=== PATIENT | female | born 1960 | race Caucasian/White ===

== ENCOUNTER → 2020-04-28 00:01 | Outpatient (BNVA) | payer BC, SELFPAY | PROVIDERS: Visit Provider Nurse Practitioner Family | DX: N39.0 Urinary tract infection, site not specified (principal) | CPT/HCPCS: 81003 ==

== ENCOUNTER 2021-06-26 05:42 | Inpatient (IN) | payer OTHER, SELFPAY ==
[2021-06-26] VITALS (10 sets, daily range): BP systolic 102–150; BP diastolic 42–74; PULSE 64–98; RESP 16–22; TEMP 36.4–36.9; O2SAT 90–99; BMI 24.1
--- NOTE | 2021-06-26 05:55 | PC.NURSE ---
patient arrival with c/o dizziness with room spinning and nausea. reports got up at midnight and was fine then at 0230 woke up and was dizzy. patient appears pale. noted with dry heaving and a BM after arrival to ER, soft but not diarrhea.
--- NOTE | 2021-06-26 06:01 | CTR_ITS ---
PROCEDURE INFORMATION: Exam: CT Head Without Contrast Exam date and time: 06/26/2021 6:01 AM Age: 60 years old Clinical indication: Patient HX: C/O dizziness with nausea. ; Additional info: Dizziness/dysarthria/ams TECHNIQUE: Imaging protocol: Computed tomography of the head without contrast. Radiation optimization: All CT scans at this facility use at least one of these dose optimization techniques: automated exposure control; mA and/or kV adjustment per patient size (includes targeted exams where dose is matched to clinical indication); or iterative reconstruction. COMPARISON: No relevant prior studies available. RADIATION DOSE METRICS: Total DLP (mGy-cm): 1022.19 FINDINGS: Brain: There are punctate hypoattenuation lesions seen within the thalami bilaterally compatible with tiny lacunar infarctions. Cerebral ventricles: No ventriculomegaly. Paranasal sinuses: Visualized sinuses are unremarkable. No fluid levels. Mastoid air cells: Visualized mastoid air cells are well aerated. Bones/joints: Unremarkable. No acute fracture. Soft tissues: Unremarkable. CT/CT head wo con* [id number] IMPRESSION: There are no acute intracranial findings.
--- NOTE | 2021-06-26 06:02 | ED_ITS ---
HPI - Dizziness General: Chief Complaint: Dizziness Stated Complaint: DIZZINESS Time Seen by Provider: 06/26/21 05:50 History of Present Illness: HPI Narrative: 60-year-old female presents emergency room complaining of dizziness. She states she woke up around 230 this morning was dizzy her states she seemed a little bit of difficulty speaking for a time as well that is completely resolved. She did not previously had issues like this. Last night before going to bed around 930 she took Benadryl as a sleep aid. She denies any chest or abdominal pain she denies any dysuria urgency or frequency. Shortly after she got up this morning she had a bowel movement.Denies any vomiting or diarrhea no recent fever sweats or chills. NIH score done initially. MD elicited complaint: dizziness and lightheadedness Onset (ago): hour(s) Timing: awoke with symptoms Severity: mild Description: lightheadedness History of similar symptoms: No Exacerbating factors: change in body position Relieving factors: nothing Associated symptoms: Reports malaise and weakness; Denies change in hearing, chest pain, chills, cough, diaphoresis, ear discharge, ear pressure, fevers/chills, headache(s), nausea, nasal congestion, palpitations, rash, short of breath, syncope, tinnitus or vomiting Associated neuro symptoms: Reports difficulty speaking; Deny confusion, dysphagia, diplopia, extremity weakness, facial numbness, facial weakness, gait changes, numbness in extremities or visual changes Review of Systems Const: Reports: malaise; Denies: chills or diaphoresis ENMT: Denies: ear discharge, change in hearing, tinnitus or nasal congestion Card: Denies: chest pain, palpitations or syncope Resp: Denies: dyspnea, productive cough or non-productive cough GI: Denies: nausea, vomiting or dysphagia : Denies: flank pain, difficulty voiding, dysuria, urinary frequency or urinary urgency Skin/Breast: Denies: rash or pruritus Neuro: Denies: headache(s), numbness in extremities or confusion PFSH ED PFSH: Medical History No pertinent past medical history Denies diabetes, asthma, hypertension, seizures, DVT/PE PCP: PIYUSH Peng Surgical History Status post hysterectomy Laparoscopic hysterectomy with bilateral salpingo-oophorectomy for abnormal uterine bleeding performed in 2000. Per patient pathology was benign Family History Brother Colon cancer Diagnosed at age 50 Father Heart disease Sister Hyperlipidemia Denies family history of Ovarian cancer Diabetes Breast cancer Hypertension Uterine cancer Thyroid condition Stroke Social History Smoking and tobacco status: never smoked Second hand smoke exposure: No Counseling given: No Desire information about substance/drug rehabilitation?: No Counseling given: No Physical Exam Const: COMMON NORMALS: no acute distress GENERAL APPEARANCE: cooperative and comfortable ORIENTATION/CONSCIOUSNESS: Yes awake, Yes oriented to person, Yes oriented to place and Yes oriented to time HENMT: COMMON NORMALS: normocephalic, atraumatic and hearing grossly normal bilaterally HEAD & SCALP: normocephalic and atraumatic Neck/C-Spine: COMMON NORMALS: no JVD Resp: COMMON NORMALS: normal respiratory effort, No retractions, No use of accessory muscles and clear to auscultation bilaterally AUSCULTATION: clear to auscultation bilaterally Cardio: COMMON NORMALS: no JVD, regular rate, regular rhythm and No murmurs present (Cardio) RATE: regular rate RHYTHM: regular rhythm GI: COMMON NORMALS: Soft to palpation and No hepatosplenomegaly present AUSCULTATION: Yes normoactive bowel sounds PALPATION: Yes Soft to palpation, No Tenderness to palpation present (GI), No Guarding due to palpation present (GI) and Yes No hepatosplenomegaly present Extremity: COMMON NORMALS: normal to inspection, capillary refill normal, no clubbing, cyanosis or edema, no calf tenderness and no pedal edema Neuro: SENSORIUM/ORIENTATION: Yes oriented to person, Yes oriented to place and Yes oriented to time Skin: COMMON NORMALS: no rashes or lesions noted GENERAL SKIN EXAM: no rashes or lesions noted Course Vital Signs: Vital signs: Vital Signs Temperature 97.6 F 06/26/21 05:45 Pulse Rate 66 06/26/21 07:36 Respiratory Rate 18 06/26/21 07:36 Blood Pressure 150/69 06/26/21 07:36 Pulse Oximetry 99 06/26/21 07:36 MDM - Dizziness MDM Narrative: Medical decision making narrative: Initial stroke score was 0. Is concerned about the symptoms to be from either side effects of the Benadryl or from a labyrinthitis however patient could not even stand. We tried to do orthostatic and she was unable to stand to have them evaluated. CTA of the head was done which shows evidence of a posterior stroke consistent with her symptoms. She been given meclizine in the interim that was not significantly helpful. When I went back to discuss the CT a results to the patient she had developed some limb ataxia of the right arm that she had not had previously. Discussed with Dr. Ospina will admit to the hospitalist service. Patient will require admission for monitoring due to the edema in the brain as well as work- up for her acute stroke. Lab Data: Labs: Lab Results 06/26/21 06/26/21 05:43 05:43 WBC 15.9 10^3/uL H 10 ^3/uL (4.0-10.0) RBC 4.36 10^6/uL 10^6 /uL (4.1-5.3) Hgb 13.4 g/dL g/dL (11.5-15.3) Hct 40.6 % % (37.0-47.0) MCV 93.1 fl fl (81-99) MCH 30.7 pg pg (28.0-34.0) MCHC 33.0 g/dL g/dL (30.0-36.0) RDW 13.0 % % (12.1-15.1) Plt Count 451 10^3/cmm H 10 ^3/cmm (130-400) MPV 9.8 fL fL (7.4-10.4) Neut % (Auto) 22.4 % % Lymph % (Auto) 67.0 % % Grundy % (Auto) 6.8 % % Eos % (Auto) 1.7 % % Baso % (Auto) 0.8 % % Neut # (Auto) 3.56 10^3/uL 10^3 /uL (1.8-7.7) Lymph # (Auto) 10.7 10^3/uL H 10 ^3/uL (0.8-4.8) Grundy # (Auto) 1.1 10^3/uL H 10^ 3/uL (0.2-0.9) Eos # (Auto) 0.3 10^3/uL 10^3/ uL (0.0-0.8) Baso # (Auto) 0.1 10^3/uL 10^3/ uL (0.0-0.1) Nucleated RBC % (a uto) 0 % % Nucleated RBCs # 0.0 /100WBC /100W BC Sodium 140 mmol/L mmol/L (136-145) Potassium 3.6 mmol/L mmol/L (3.5-5.1) Chloride 103 mmol/L mmol/L (98-107) Carbon Dioxide 20 mmol/L L mmol/ L (22-29) Anion Gap 20.6 H (5-19) BUN 17 mg/dL mg/dL (8-23) Creatinine 0.5 mg/dL mg/dL (0.5-0.9) GFR Calculation 125.4 mL/min mL/m in (90-130) Glucose 178 mg/dL H mg/dL (65-115) Calculated Osmolal ity 296 mOsm/kg H mOs m/kg (285-295) Calcium 9.9 mg/dL mg/dL (8.5-10.5) Total Bilirubin 0.3 mg/dL mg/dL (0.15-1.2) AST 16 U/L U/L (0-32) ALT 14 U/L U/L (0-33) Alkaline Phosphata se 66 IU/L IU/L (35-105) Creatine Kinase 87 U/L U/L (26-192) Total Protein 6.7 g/dL g/dL (6.6-8.7) Albumin 4.2 g/dL g/dL (3.5-5.2) Globulin 2.5 g/dL g/dL (1.3-4.6) Discharge Plan Discharge Patient Disposition: Admitted As Inpatient Clinical Impression: Posterior circulation stroke Condition: Stable Coding Level of Care Code ED Director Dietetics Department for Lauren Padilla Exam Comprehensive NIH stroke score NIHSS Level Of Consciousness - 1a: 0 Level Of Consciousness Questions - 1b: Both Correct Level Of Consciousness Commands - 1c: Both Correct Best Gaze - 2: Normal Visual Antonio - 3: No Visual Loss Facial Palsy - 4: Normal Motor Arm Right - 5: No Drift Motor Arm Left - 5: No Drift Motor Leg Right - 6: No Drift Motor Leg Left - 6: No Drift Limb Ataxia - 7: Absent Sensory - 8: Normal Best Language - 9: No Aphasia Dysarthia - 10: Normal Extinction And Inattention - 11: 0 Score Total Score: 0
[2021-06-26 06:11] LABS: Basophils # 0.1 10^3/uL (0.0-0.1); Basophils % 0.8 %; Eosinophils # 0.3 10^3/uL (0.0-0.8); Eosinophils % 1.7 %; Hematocrit 40.6 % (37.0-47.0); Hemoglobin 13.4 g/dL (11.5-15.3); Lymphocytes # 10.7 10^3/uL (0.8-4.8); Mean Corpuscular Hemoglobin 30.7 pg (28.0-34.0); Mean Corpuscular Volume 93.1 fl (81-99); Mean Platelet Volume 9.8 fL (7.4-10.4); Monocytes # 1.1 10^3/uL (0.2-0.9); Monocytes % 6.8 %; Neutrophils # 3.56 10^3/uL (1.8-7.7); Neutrophils % 22.4 %; Nucleated Red Blood Cells % 0 %; Platelet Count 451 10^3/cmm (130-400); Red Blood Count 4.36 10^6/uL (4.1-5.3); White Blood Count 15.9 10^3/uL (4.0-10.0)
[2021-06-26 06:29] LABS: Alanine Aminotransferase 14 U/L (0-33); Albumin Level 4.2 g/dL (3.5-5.2); Alkaline Phosphatase 66 IU/L (35-105); Anion Gap 20.6 (5-19); Aspartate Amino Transferase 16 U/L (0-32); Blood Urea Nitrogen 17 mg/dL (8-23); Calcium 9.9 mg/dL (8.5-10.5); Carbon Dioxide 20 mmol/L (22-29); Chloride 103 mmol/L (98-107); Creatine Phosphokinase 87 U/L (26-192); Globulin 2.5 g/dL (1.3-4.6); Glomerular Filtration Rate 125.4 mL/min (90-130); Glucose 178 mg/dL (65-115); Osmolality Calculated 296 mOsm/kg (285-295); Potassium 3.6 mmol/L (3.5-5.1); Sodium 140 mmol/L (136-145); Total Bilirubin 0.3 mg/dL (0.15-1.2); Total Protein 6.7 g/dL (6.6-8.7)
--- NOTE | 2021-06-26 06:42 | PC.NURSE ---
transported to CT
[2021-06-26] MEDS: meclizine 25 mg tablet 50 MG PO (07:30)
--- NOTE | 2021-06-26 08:51 | CT_ITS ---
WS: [id number] CT ANGIOGRAM CEREBRAL AND CAROTID ARTERIES HISTORY: dizziness/unsteady TECHNIQUE: CT angiogram is performed of the carotid and cerebral arteries. During arterial injection imaging is obtained from the skull vertex to the aortic arch in 1.25 mm imaging. Coronal and sagittal reformats are submitted. Additional multi planar reformats of the carotid and cerebral arteries are submitted, MIP imaging also reviewed. NASCET criteria utilized. [facility] at least one of these dose optimization techniques: automated exposure control; mA and/or kV adjust ment per patient size (includes targeted exams where dose is matched to clinical indication); or iter ative reconstruction. CONTRAST: Omnipaque 350; 95 mL IV. DLP: 1724.22 mGy.cm COMPARISON: Noncontrast head CT earlier the same day. Carotid Angiogram: Right carotid: Common carotid artery: Arises normally from the innominate artery. No significant plaque or stenosis. Internal carotid artery: Small amount of calcified plaque without stenosis at the origin of the ICA. External carotid artery: Patent. Left carotid: Common carotid artery: Arises normally from the aorta. No significant plaque or stenosis. Internal carotid artery: Small amount of calcified plaque at the origin of the ICA. No high-grade bee nosis. External carotid artery: Patent. Right vertebral artery: Unremarkable. Left vertebral artery: Unremarkable. Arises normally from the subclavian artery. Subclavian arteries: No stenosis or significant abnormality. Upper thorax: Normal. Thyroid gland: Normal. Osseous structures: Multiple normal cervical lordosis and cervical spondylosis. CEREBRAL ANGIOGRAM: Since the initial CT performed earlier the same day there has been development of an area of edema wi thin the superior RIGHT cerebellum noted on the postcontrast images consistent with an acute ischemic stroke. This is along the superior medial cerebellum. Intracranial vertebral arteries: Normal with no significant atherosclerosis. Basilar artery: No significant stenosis or occlusion. No aneurysm. Intracranial Internal carotid arteries: Mild calcified plaque through the cavernous sinuses. No high- grade stenosis. Middle cerebral arteries: There is an asymmetric appearance of the middle cerebral arteries. There is a significant paucity of vessels throughout the LEFT middle cerebral artery territory as compared to the RIGHT. Caliber of the arteries is small beginning in the M2 through M3 and November 4 segments. The underlying brain parenchyma does not appear edematous. Anterior cerebral arteries and ACOM: Normal. Posterior cerebral arteries and PCOM's: Normal. Dural venous sinuses are normally enhancing. Mixed filling in the RIGHT jugular vein is probably due to slow flow. Mastoid air cells: Normal. Paranasal sinuses: Small mucous retention cyst in the floor the RIGHT maxillary sinus. Calvarium: Normal. CT/CT angio headneck* [id number] IMPRESSION: 1. Interval development of a moderate-sized acute RIGHT superior medial cerebe llar infarct since the study earlier the same day. Recommend follow-up MRI with diffusion imaging. 2. No significant carotid artery stenosis. Minimal plaque at the origins of th e extracranial carotid arteries with stenosis much less than 50%. 3. Atherosclerosis intracranial carotid arteries. No occlusions or high-grade stenosis. 4. There is a moderate paucity of vessels within the LEFT MCA territory, great est from the M2, M3 and M4 distributions. No thrombus is identified. This may b e a normal variant for this patient. Additional etiologies to consider are cere bral artery spasm. Notified Luis Pedro DO at 06/26/2021 10:17 AM.
--- NOTE | 2021-06-26 09:13 | ECG_ITS ---
[facility] Test Date: 2021-06-26 Pat Name: Binh Minor Department: Room: Gender: Female Forensics Analyst: : 1960 Requested By: Luis Bryant Order Number: [id number] Jose MD: Vesta Holland M.D. Measurements Intervals [place] Rate: 82 P: 55 KS: 133 QRS: 35 QRSD: 84 T: 50 QT: 396 QTc: 464 Interpretive Statements SINUS RHYTHM POSSIBLE LEFT ATRIAL ENLARGEMENT [-0.1mV P-WAVE IN V1/V2] No previous ECG available for comparison Electronically Signed On 06-26-2021 17:56:07 HARD METALS ENGRAVER HAND by Vesta Holland M.D. [id number]
[2021-06-26] MEDS: iohexol 350 mg/mL 100 mL Btl IV (09:26)
--- NOTE | 2021-06-26 10:25 | USCV_ITS ---
Mily, Binh Age: 60 Gender: F : 1960 Exam Date: 06/26/2021 10:48 Ordering Phys: Titi Koenig MD Technologist: ANIYA Exam Location: [facility] [place] Indication: c/o ataxia, dizziness BP: / HR: 75 Rhythm: Sinus Technical Quality: Adequate MEASUREMENTS (Male / Female) Normal Values 2D ECHO LV Diastolic Diameter PLAX 4.4 cm 4.2 - 5.9 / 3.9 - 5.3 cm LV Systolic Diameter PLAX 2.6 cm IVS Diastolic Thickness 1.0 cm 0.6 - 1.0 / 0.6 - 0.9 cm IVS Systolic Thickness 1.2 cm LVPW Diastolic Thickness 0.8 cm 0.6 - 1.0 / 0.6 - 0.9 cm LVPW Systolic Thickness 1.0 cm LVOT Diameter 1.8 cm LV Ejection Fraction 2D Teich 71.5 % LV Ejection Fraction MOD 2C 57.7 % LV Ejection Fraction 2C AL 59.3 % LA Diameter 3.2 cm LA Width 3.4 cm LA Height 4.0 cm RA Width 3.4 cm RA Height 4.0 cm Aorta at Sinotubular Diameter 2.6 cm M-MODE Aortic Annulus Diameter 2.5 cm LA Ao Ratio MM 1.3 MV E Point Septal Separation 0.2 cm DOPPLER AV Peak Velocity 89.0 cm/s LVOT Peak Velocity 88.0 cm/s AV Area Cont Eq vti 2.7 cm squared AV Area Cont Eq pk 2.7 cm squared MV Peak Velocity 123.0 cm/s MV Area PHT 4.8 cm squared Mitral E to A Ratio 0.8 MV E' Velocity 54.0 cm/s Mitral E to MV E' Ratio 13.6 Mitral E to LV E' Lateral Ratio 12.6 Mitral E to LV E' Septal Ratio 15.0 TR Peak Velocity 214.0 cm/s TR Peak Gradient 18.3 mmHg TV Peak E Velocity 41.0 cm/s Right Atrial Pressure 5.0 mmHg Pulmonary Artery Systolic Pressu 23.3 mmHg PV Peak Velocity 85.0 cm/s RV Acceleration Time 0.1 s RV Ejection Time 0.4 s RV AcT/ET 0.3 FINDINGS Left Ventricle Normal left ventricular size, systolic function and wall thickness, with no regional wall motion abnormalities. Left ventricular ejection fraction is estimated at 65 %. Normal diastolic function. Right Ventricle Normal right ventricular size and systolic function. Right ventricular systolic pressure 24 mmHg. Right Atrium Normal right atrial size. Right atrial pressure estimated at 3 mmHg. Left Atrium Upper normal left atrial size. Mitral Valve Mild mitral annular calcification. No mitral valve stenosis. Mild mitral valve regurgitation. Aortic Valve Structurally normal trileaflet aortic valve. No aortic valve stenosis. No aortic valve regurgitation. Tricuspid Valve Structurally normal tricuspid valve. No tricuspid valve stenosis. Trace tricuspid valve regurgitation. Pulmonic Valve Structurally normal pulmonic valve. No pulmonary valve stenosis. No pulmonary valve regurgitation. Pericardium No pericardial effusion. Aorta Normal size aortic root and proximal ascending aorta. Normal size inferior vena cava with normal respiratory variation. CONCLUSIONS 1. Normal left ventricular size, systolic function and wall thickness, with no regional wall motion abnormalities. Left ventricular ejection fraction is estimated at 65 %. Normal diastolic function. 2. Pulmonary artery pressure estimated at 24 mmHg. 3. Mild mitral valve regurgitation. 4. No prior similar studies to compare. Milagros Castellanos MD (Electronically Signed) Final Date: 26 June 2021 16:19 S
--- NOTE | 2021-06-26 10:29 | ECG_ITS ---
[facility] Test Date: 2021-06-26 Pat Name: Binh Minor Department: Room: Gender: Female Equipment Scheduler: : 1960 Requested By: Luis Bryant Order Number: [id number] Jose MD: Vesta Holland M.D. Measurements Intervals [place] Rate: 65 P: 52 MT: 136 QRS: 23 QRSD: 91 T: 40 QT: 453 QTc: 472 Interpretive Statements SINUS RHYTHM WITH SINUS ARRHYTHMIA No previous ECG available for comparison Electronically Signed On 06-26-2021 17:56:03 TABLE MACHINE OPERATOR by Vesta Holland M.D. [id number]
--- NOTE | 2021-06-26 10:52 | PM.HP ---
Providers/Chief Complaint Chief Complaint: DIZZINESS History of Present Illness Binh Minor is a 60 year old female presenting to the emergency department with significant dizziness. She reports when she went to bed last night she was normal. She woke up around 2 AM, ambulated to the bathroom and back without any deficits. She woke up again around 330 to 4 AM and was severely dizzy. She reports she had difficulty ambulating, and vomited. Since that time she has remained dizzy, worsening when she opens her eyes. She has been nauseous. No more vomiting. Denies any illness recently. No fever or cough. Not vaccinated for Covid and has not had it. Never has had a stroke before. Denies any significant medical problems. Some headache currently. In the emergency department she had a CT head, which showed no abnormality. She was undergoing orthostatics, had had some meclizine, and had persistent dizziness so a CTA was performed. This demonstrated a moderate sized right superior medial cerebellar infarct. She was out of the window for TPA, and had no vascular thrombus warranting thrombectomy. Review of Systems General: Reports: 10 or more systems reviewed and unremarkable except in HPI and below Const: Denies: fever(s), chills or fatigue Eyes: Denies: change in vision ENMT: Denies: throat pain Card: Denies: chest pain Resp: Denies: dyspnea GI: Reports: nausea and vomiting; Denies: abdominal pain : Denies: flank pain Musc: Denies: neck pain Skin/Breast: Denies: rash Neuro: Reports: headache(s) and lack of coordination Psych: Denies: anxiety or depression Endo: Denies: polyuria Gabriel/Lymph: Denies: easy bruising All/Imm: Denies: urticaria Medications/Allergies Home Medications Medication Instructions Recorded Confirmed Last Taken Type garlic 1 tab PO DAILY 06/26/21 06/26/21 Unknown History multivitamin 1 tab PO DAILY 06/26/21 06/26/21 Unknown History Allergies Allergy/AdvReac Type Severity Reaction Status Date / Time No Known Allergies Allergy Verified 06/26/21 08:30 PFSH Acute PFSH: Medical History No pertinent past medical history Denies diabetes, asthma, hypertension, seizures, DVT/PE PCP: Montse Sharp, LAYUP WORKER Surgical History Status post hysterectomy Laparoscopic hysterectomy with bilateral salpingo-oophorectomy for abnormal uterine bleeding performed in 2000. Per patient pathology was benign Family History Brother Colon cancer Diagnosed at age 50 Father Heart disease Sister Hyperlipidemia Denies family history of Ovarian cancer Diabetes Breast cancer Hypertension Uterine cancer Thyroid condition Stroke Social History Smoking and tobacco status: never smoked Second hand smoke exposure: No Counseling given: No Desire information about substance/drug rehabilitation?: No Counseling given: No Vitals/I&O/Wt Last Vital Signs Temp 97.6 F 06/26/21 05:45 Pulse 66 06/26/21 07:36 Resp 18 06/26/21 07:36 BP 150/69 06/26/21 07:36 Pulse Ox 99 06/26/21 07:36 Weight last 48 hrs Weight 58.06 kg Data : 06/26/21 05:43 06/26/21 05:43 Other data: CTA head and neck demonstrated moderate sized acute right superior medial cerebellar infarct, minimal carotid plaquing without significant stenosis, paucity of vessels left MCA territory. Head CT normal EKG demonstrated sinus rhythm, normal axis, normal EKG with the exception of possible left atrial enlargement demonstrated by biphasic P wave in V1 LFTs are normal, CK is normal, TSH is ordered and pending A&P Assessment and plan (1) Posterior circulation stroke: Admission Therapy consultations Echocardiogram Telemetry Aspirin, Plavix, statin Permissive hypertension Hydration Lovenox for DVT prophylaxis Check TSH I did a quick bedside swallow and did not notice any deficit. Stroke orders used. Stroke education Status: Acute Additional A&P Information Hyperglycemia. Check hemoglobin A1c. Full code Lovenox for DVT prophylaxis Attestations Medical Necessity Statement*: Will need greater than 2 midnight stay secondary to posterior circulation CVA, cerebellar, with significant balance and upper extremity deficit. Time Spent in Patient Care: Greater than 35 minutes Coding Level of Care Code Acute Interpreter And Translator for Lauren Padilla Diagnoses Posterior circulation stroke I63.50
[2021-06-26] MEDS: aspirin 81 mg Chew Tablet 324 MG PO (10:54)
[2021-06-26 11:07] LABS: Add Urine Microscopic? NO; Charge for UA Resulting for Rev
[2021-06-26 11:29] LABS: Bilirubin Urine Neg (Negative); Blood Urine Neg (Negative); Glucose Urine UA Trace (Normal); Ketones Urine Negative (Negative); Leukocyte Esterase Urine Negative (Negative); Nitrate Urine Negative (Negative); Protein Urine Neg (Negative); Specific Gravity, Urine 1.005 (1.005-1.030); Urine Appearance Clear (CLEAR); Urine Color Yellow (Yellow); Urobilinogen Urine Norm (Negative); pH Urine 7 (5-7)
[2021-06-26 11:56] LABS: Thyroid Stimulating Hormone 2.75 uIU/mL (0.27-4.20)
[2021-06-26 12:44] LABS: Estmated Average Glucose 126
[2021-06-26] MEDS: sodium chloride 0.9% 1,000 ML 100 ML IV (18:07)
[2021-06-26] MEDS: enoxaparin 40 mg/0.4 mL Syringe SUBCUT (18:07)
[2021-06-26] MEDS: meclizine 25 mg tablet PO (21:17)
[2021-06-26] MEDS: atorvastatin 40 mg Tablet 20 MG PO (21:17)
[2021-06-27] VITALS (9 sets, daily range): BP systolic 131–149; BP diastolic 62–74; PULSE 69–83; RESP 18–19; TEMP 36.6–37.4; O2SAT 95–98
[2021-06-27 04:31] LABS: Basophils % 0.2 %; Eosinophils % 0.1 %; Hematocrit 36.1 % (37.0-47.0); Hemoglobin 12.1 g/dL (11.5-15.3); Lymphocytes % 28.8 %; Mean Corpuscular HGB Conc 33.5 g/dL (30.0-36.0); Mean Corpuscular Hemoglobin 30.9 pg (28.0-34.0); Mean Corpuscular Volume 92.1 fl (81-99); Mean Platelet Volume 9.4 fL (7.4-10.4); Monocytes # 1.3 10^3/uL (0.2-0.9); Monocytes % 7.6 %; Neutrophils # 10.88 10^3/uL (1.8-7.7); Neutrophils % 62.8 %; Nucleated Red Blood Cells % 0 %; Platelet Count 385 10^3/cmm (130-400); Red Blood Count 3.92 10^6/uL (4.1-5.3); Red Cell Distribution Width 13.2 % (12.1-15.1); White Blood Count 17.3 10^3/uL (4.0-10.0)
[2021-06-27 04:49] LABS: Alanine Aminotransferase 10 U/L (0-33); Albumin Level 3.9 g/dL (3.5-5.2); Alkaline Phosphatase 47 IU/L (35-105); Anion Gap 15.6 (5-19); Aspartate Amino Transferase 15 U/L (0-32); Blood Urea Nitrogen 13 mg/dL (8-23); Calcium 8.4 mg/dL (8.5-10.5); Carbon Dioxide 22 mmol/L (22-29); Chloride 104 mmol/L (98-107); Chol HDL Ratio 7.66 mg/dL (0.0-4.40); Cholesterol 268 mg/dL (0-200); Globulin 1.9 g/dL (1.3-4.6); Glomerular Filtration Rate 125.4 mL/min (90-130); Glucose 110 mg/dL (65-115); HDL Cholesterol 35 mg/dL (60-100); Osmolality Calculated 287 mOsm/kg (285-295); Potassium 3.6 mmol/L (3.5-5.1); Sodium 138 mmol/L (136-145); Total Bilirubin 0.2 mg/dL (0.15-1.2); Total Protein 5.8 g/dL (6.6-8.7); Triglycerides 462 mg/dL (0-150)
[2021-06-27] MEDS: sodium chloride 0.9% 1,000 ML 100 ML IV (05:23)
[2021-06-27] MEDS: meclizine 25 mg tablet PO (05:26)
[2021-06-27 06:45] LABS: LDL Cholesterol Direct 189 mg/dL (0-100)
[2021-06-27] MEDS: clopidogrel 75 mg Tablet PO (07:41)
[2021-06-27] MEDS: aspirin 81 mg EC Tablet PO (07:41)
--- NOTE | 2021-06-27 11:40 | P.PN_ITS ---
Subjective Subjective: Interval history: Patient is stating that her right side of her body still feels weak however she has noticed some improvement, her vision has improved as well, she wants to follow-up with outpatient skilled therapy in [place] plan to do PT evaluation today and send her home tomorrow Vitals/I&O/Wt Last Vital Signs Temp 98.3 F 06/27/21 07:49 Pulse 73 06/27/21 07:49 Resp 18 06/27/21 07:49 BP 145/74 06/27/21 07:49 Pulse Ox 95 06/27/21 07:49 06/26/21 06/27/21 06/27/21 22:59 06:59 14:59 Intake Total 120 / 120 1480 / 1600 240 / 240 Output Total 300 / 300 550 / 850 Balance -180 / -180 930 / 750 240 / 240 Weight last 48 hrs Weight 58.377 kg Weight 58.06 kg Physical Exam Narrative: EXAM NARRATIVE: She was sitting in a recliner saturating well on room air Appears stated age Euvolemic Endorsing fatigue and lethargy Awake and alert She has good handgrips bilaterally Able to extend her legs bilaterally without significant weakness EOMI, PERRLA No nystagmus No scanning speech Gait was not tested S1, S2 Saturating well on room air Abdomen soft Data : 06/27/21 04:02 06/27/21 04:02 A&P Assessment and plan (1) Posterior circulation stroke: Status: Acute Additional A&P Information Posterior circulation stroke Continue dual antiplatelet therapy for 21 days Sinus rhythm Echo is unremarkable Outpatient skilled therapy, plan to discharge her tomorrow Discontinue her fluids Hemodynamically stable Her dizziness is related to stroke, will discontinue meclizine Full code Cardiac diet Will follow-up with PT evaluation DVT prophylaxis Lovenox She has leukocytosis, afebrile, no signs of aspiration Etiology of leukocytosis unknown, no signs of sepsis, monitor for now Attestations Medical Necessity Statement*: PT evaluation today, possible discharge tomorrow Time Spent in Patient Care: 16 - 35 minutes Coding Level of Care Code Acute Freezing Machine Operator for Lauren Padilla Diagnoses Posterior circulation stroke I63.50
--- NOTE | 2021-06-27 11:47 | XRR_ITS ---
PROCEDURE INFORMATION: Exam: XR Chest Exam date and time: 06/27/2021 11:47 AM Age: 60 years old Clinical indication: Other: Fatigue TECHNIQUE: Imaging protocol: XR of the chest. Views: 1 view. COMPARISON: CT angio headneck* [id number] 06/26/2021 9:25 AM FINDINGS: Lungs: Unremarkable. No consolidation. Pleural spaces: Unremarkable. No pleural effusion. No pneumothorax. Heart/Mediastinum: Unremarkable. No cardiomegaly. Bones/joints: Unremarkable. XR/XR chest 1V portable [id number] IMPRESSION: No acute findings.
[2021-06-27] MEDS: enoxaparin 40 mg/0.4 mL Syringe SUBCUT (15:50)
[2021-06-27] MEDS: atorvastatin 40 mg Tablet 20 MG PO (20:15)
[2021-06-28] VITALS: BP 151/75; PULSE 85; RESP 18; O2SAT 97
[2021-06-28 04:00] VITALS: BP 165/71; PULSE 7; RESP 18; TEMP 37.1; O2SAT 97
[2021-06-28 05:37] VITALS: PULSE 69
--- NOTE | 2021-06-28 06:04 | PC.NURSE ---
shift summary pt rested well through out the night, no c/o and s/s of distress noted
[2021-06-28 06:59] LABS: Basophils # 0.1 10^3/uL (0.0-0.1); Basophils % 0.4 %; Eosinophils % 0.2 %; Hematocrit 38.4 % (37.0-47.0); Hemoglobin 12.7 g/dL (11.5-15.3); Lymphocytes # 5.5 10^3/uL (0.8-4.8); Lymphocytes % 44.3 %; Mean Corpuscular HGB Conc 33.1 g/dL (30.0-36.0); Mean Corpuscular Hemoglobin 30.8 pg (28.0-34.0); Mean Platelet Volume 9.6 fL (7.4-10.4); Monocytes # 0.8 10^3/uL (0.2-0.9); Monocytes % 6.2 %; Neutrophils # 5.94 10^3/uL (1.8-7.7); Neutrophils % 48.4 %; Nucleated Red Blood Cells % 0 %; Platelet Count 380 10^3/cmm (130-400); Red Blood Count 4.13 10^6/uL (4.1-5.3); Red Cell Distribution Width 13.1 % (12.1-15.1); White Blood Count 12.3 10^3/uL (4.0-10.0)
[2021-06-28 07:13] LABS: Anion Gap 14.8 (5-19); Blood Urea Nitrogen 13 mg/dL (8-23); Calcium 8.7 mg/dL (8.5-10.5); Carbon Dioxide 24 mmol/L (22-29); Chloride 105 mmol/L (98-107); Glomerular Filtration Rate 125.4 mL/min (90-130); Glucose 95 mg/dL (65-115); Osmolality Calculated 290 mOsm/kg (285-295); Potassium 3.8 mmol/L (3.5-5.1); Sodium 140 mmol/L (136-145)
[2021-06-28 07:30] VITALS: BP 159/67; PULSE 76; RESP 18; TEMP 36.6; O2SAT 97
[2021-06-28] MEDS: clopidogrel 75 mg Tablet PO (08:57)
[2021-06-28] MEDS: aspirin 81 mg EC Tablet PO (08:57)
--- NOTE | 2021-06-28 10:33 | P.DS_ITS ---
Discharge Providers Date of Admission: 06/26/21 14:21 Date of Discharge: June 28, 2021 Attending Provider at Admission: Titi Koenig MD Attending Provider at Discharge: Angie Zuluaga MD Diagnoses at Discharge Discharge Diagnosis (1) Posterior circulation stroke: Status: Acute Reason for Visit Reason for Visit: DIZZINESS Hospital Course Hospital Course History of Present Illness by Dr. Ospina Binh Minor is a 60 year old female presenting to the emergency department with significant dizziness. She reports when she went to bed last night she was normal. She woke up around 2 AM, ambulated to the bathroom and back without any deficits. She woke up again around 330 to 4 AM and was severely dizzy. She reports she had difficulty ambulating, and vomited. Since that time she has remained dizzy, worsening when she opens her eyes. She has been nauseous. No more vomiting. Denies any illness recently. No fever or cough. Not vaccinated for Covid and has not had it. Never has had a stroke before. Denies any significant medical problems. Some headache currently. In the emergency department she had a CT head, which showed no abnormality. She was undergoing orthostatics, had had some meclizine, and had persistent dizziness so a CTA was performed. This demonstrated a moderate sized right superior medial cerebellar infarct. She was out of the window for TPA, and had no vascular thrombus warranting thrombectomy. Hospital course I took over her care over the weekend, patient was admitted for management of posterior circulation stroke which was evident on CTA head and neck, overnight her weakness on right side and vision changes improved. She did well with physical therapist in the hospital and was recommended home exercise program. 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 During her hospitalization she remained asymptomatic, hypertension 149/80 mmHg blood pressure at the time of discharge, she was given instruction to take aspirin along Plavix for 21 days and then keep on taking aspirin with atorvastatin. Lisinopril low-dose was added for her hypertension. Hemoglobin A1c around 6. No signs of A. fib during hospitalization on telemetry. EKG showed sinus rhythm. Echo unremarkable. She was noticed to have leukocytosis however she remained afebrile, no active signs of infection, x-rays clear, will give her CBC prescription to be checked within 3 days. Outpatient follow-up with neurologist Dr. Case. She does have a walker, bedside commode and shower chair at home, will be discharged on home exercise program. CT/CT angio headneck* [id number] IMPRESSION: 1. Interval development of a moderate-sized acute RIGHT superior medial cerebellar infarct since the study earlier the same day. Recommend follow-up MRI with diffusion imaging. 2. No significant carotid artery stenosis. Minimal plaque at the origins of the extracranial carotid arteries with stenosis much less than 50%. 3. Atherosclerosis intracranial carotid arteries. No occlusions or high-grade stenosis. 4. There is a moderate paucity of vessels within the LEFT MCA territory, greatest from the M2, M3 and M4 distributions. No thrombus is identified. This may be a normal variant for this patient. 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 echo complete * [id number] Routine Ultrasound 06/26/21 10:25 Completed Labs from last 24 hours 06/28/21 06/28/21 05:46 05:46 WBC 12.3 H RBC 4.13 Hgb 12.7 Hct 38.4 MCV 93.0 MCH 30.8 MCHC 33.1 RDW 13.1 Plt Count 380 MPV 9.6 Neut % (Auto) 48.4 Lymph % (Auto) 44.3 [place] % (Auto) 6.2 Eos % (Auto) 0.2 Baso % (Auto) 0.4 Neut # (Auto) 5.94 Lymph # (Auto) 5.5 H [place] # (Auto) 0.8 Eos # (Auto) 0.0 Baso # (Auto) 0.1 Nucleated RBC % (a uto) 0 Nucleated RBCs # 0.0 Sodium 140 Potassium 3.8 Chloride 105 Carbon Dioxide 24 Anion Gap 14.8 BUN 13 Creatinine 0.5 GFR Calculation 125.4 Glucose 95 Calculated Osmolal ity 290 Calcium 8.7 Vitals: Last Vital Signs Temp 97.8 F 06/28/21 07:30 Pulse 76 06/28/21 07:30 Resp 18 06/28/21 07:30 BP 159/67 06/28/21 07:30 Pulse Ox 97 06/28/21 07:30 Discharge Plan Discharge Patient Disposition: Home Condition: Stable Prescriptions: New clopidogrel 75 mg Tablet 75 mg PO DAILY Qty: 21 RF: 0 aspirin 81 mg Tablet,Delayed Release (Dr/Ec) 81 mg PO DAILY Qty: 30 RF: 3 Lipitor 40 mg tablet 40 mg PO DAILY Qty: 60 RF: 3 lisinopril 5 mg tablet 5 mg PO DAILY Qty: 30 RF: 3 Continued multivitamin Tablet 1 tab PO DAILY RF: 0 garlic Tablet 1 tab PO DAILY RF: 0 Discharge Orders: Discharge Order (Routine); Ordered 06/28/21 Ordered By: Angie Zuluaga Other Ambulatory Orders: Complete Blood Count w/Auto (Routine) Timeframe: 3 Days Location: Determined by Patient Ordered By: Angie Zuluaga Referrals: Chayo Caes MD [Physician] - 2 weeks (Please call Tuesday morning for hospital follow-up appointment. ) Discharge Diet: Cardiac Discharge Activity: Increase activity as tolerated Patient Instructions: Lisinopril (By mouth), Aspirin (By mouth), Atorvastatin (By mouth), Clopidogrel (By mouth), Opioid Safety Discharge Attestations Time Spent in Discharge Care*: less than 30 min Quality Metrics Clinical Quality Measures During this hospital stay, did patient experience: None Coding Level of Care Code Acute Chg FW DC note Diagnoses Posterior circulation stroke I63.50
[2021-06-28 11:18] VITALS: BP 149/80; PULSE 75; RESP 18; TEMP 36.8; O2SAT 98
[2021-06-28 11:41] VITALS: BP 149/80; PULSE 75; RESP 18; TEMP 36.8; O2SAT 98
== END 2021-06-28 11:43 | disposition home or self-care (01) | DRG 66 ==
LOC: ER 10:25 → MEDSURG 17:51
PROVIDERS: Admitting Provider Internal Medicine; Emergency Provider Family Medicine; Visit Provider Internal Medicine
DX: I63.531 Cerebral infarction due to unspecified occlusion or stenosis of right posterior cerebral artery (principal); R26.0 Ataxic gait; G83.21 Monoplegia of upper limb affecting right dominant side; R29.700 NIHSS score 0; R73.9 Hyperglycemia, unspecified; I10 Essential (primary) hypertension
CPT/HCPCS: 36415; 70450; 70496; 70498; 71045; 80048; 80053; 80061; 81003; 82550; 83036; 83721; 84443; 85025; 92507; 92523; 92610; 93005; 93306; 96372; 97110; 97116; 97161; 97165; 97530; 99285; J1650; J7030; J8597; Q9967

== ENCOUNTER 2021-08-03 15:07 | Outpatient (CLI) | payer OTHER, SELFPAY ==
--- NOTE | 2021-08-03 15:15 | MR_ITS ---
WS: [id number] MRA ANGIOGRAPHY [place] HISTORY: I63.50 - Cerebral infarction due to unspecified occlusion... COMPARISON: None available. TECHNIQUE: 3-D MR angiography is performed of the [place]. All images are reviewed including source images. Distal vertebral arteries and the basilar artery are intact. No aneurysm or occlusion. Posterior cere bral arteries are both normal caliber. Normal-sized posterior cerebral communicating arteries. Intracranial carotid arteries are normal size. No significant atherosclerotic change or occlusion. Mi ddle cerebral arteries are normal. No aneurysm. Normal anterior cerebral arteries. Normal anterior co mmunicating. Posterior communicating arteries are both patent. Again noted is the area of decreased signal in the RIGHT superior cerebellum with a small amount of a djacent increased signal in the periphery. No nidus identified. MR/MR angio head wo con [id number] IMPRESSION: 1. No aneurysms or occlusions within the [place]. 2. No significant atherosclerosis.
--- NOTE | 2021-08-03 16:00 | MR_ITS ---
WS: [id number] MRI BRAIN WITHOUT CONTRAST HISTORY: I63.50 - Cerebral infarction due to unspecified occlusion... COMPARISON: 06/26/2021 CT TECHNIQUE: Diffusion imaging, multiplanar T1, T2 and FLAIR imaging obtained. No acute infarcts are identified. There is an area of mixed signal on the T2 sequences in the superio r medial cerebellum. This corresponds to the previously described infarct present. There is increased peripheral signal on the T1 sequence suggesting cortical laminar necrosis. Hemosiderin is present al marisa the previous the described infarct. There is no midline shift. There is very mild volume loss pre sent. There are additional T2 and FLAIR signal hyperintensities in the subcortical white matter. Mode rate amount of bilateral distribution. Slightly greater involving the LEFT frontoparietal region. No acute infarct. Normal diffusion. Ventricles and extra-axial spaces are normal. No inferior displacement of cerebellar tonsils. The sella turcica and pituitary gland are unremarkabl e. Dural venous sinuses and [place] demonstrate no abnormality on this unenhanced studies. Paranasal sinuses: Mucous retention cyst in the RIGHT maxillary sinus. No air-fluid levels. Mastoid air cells: Normal. Calvarium and scalp: Intact. MR/MR head wo con* [id number] IMPRESSION: 1. No acute diffusion-weighted abnormalities. 2. Remote wedge-shaped remote infarct in the superior medial RIGHT cerebellum corresponds to the abnormality seen on 06/26/2021. Hemosiderin is now present wit hin the infarct. No acute blood or enhancement was noted on the prior CT angiog pk. Consider follow-up MRI brain with contrast to evaluate for underlying vasc ular abnormality. 3. No ventriculomegaly.
== END 2021-08-03 15:08 | disposition home or self-care (01) ==
LOC: RAD 15:09
PROVIDERS: PCP Nurse Practitioner Family; Visit Provider Specialist
DX: I63.50 Cerebral infarction due to unspecified occlusion or stenosis of unspecified cerebral artery (principal)
CPT/HCPCS: 70544; 70551

== ENCOUNTER → 2021-08-25 10:04 | Outpatient (BNVA) | payer OTHER, SELFPAY | PROVIDERS: PCP Nurse Practitioner Family; Visit Provider Internal Medicine Cardiovascular Disease | DX: Z20.822 Contact with and (suspected) exposure to COVID-19 (principal); I34.0 Nonrheumatic mitral (valve) insufficiency | CPT/HCPCS: 87635 ==

== ENCOUNTER 2021-08-28 09:30 | Day surgery (SDC) | payer OTHER, SELFPAY ==
[2021-08-26 13:05] VITALS: BMI 24.0
--- NOTE | 2021-08-28 09:50 | ANES.PREANE2 ---
Pre-Anesthetic Assessment Height/Weight: Height 1.55 m Weight 57.606 kg Operation Date: 08/28/21 11:00 Proposed Procedures p TETE/I34.0,I63.441(Not Applicable) - Milagros Castellanos MD Familial anesthetic complications: None Was Beta Abram taken within 24 hours: N/A Was Clonidine taken within 24 hours: N/A Last intake: 08/27/2021 Social No alcohol and No tobacco Exam alert, oriented x 3, clear to auscultation bilaterally and regular rate & rhythm Airway Submandibular: within normal limits Cervical ROM: within normal limits Mallampati: Class I Dentition: full History/ROS No significant complaints Pulmonary None reported CV/HEM Holter 07/29/21 Conclusion: 1.? The baseline rhythm was found to be normal sinus with an overall average heart rate of 80 bpm.? Rare ventricular and sublingual ectopics were noted 2.? No symptoms are mentioned with any of the recordings.? No significant tachy or bradyarrhythmias.? No significant pauses 3.? No previous similar studies, available for comparison TTE 06.26.21 CONCLUSIONS ?1. Normal left ventricular size, systolic function and wall ?thickness, with no regional wall motion abnormalities. Left ?ventricular ejection fraction is estimated at 65 %. Normal ?diastolic function. ?2. Pulmonary artery pressure estimated at 24 mmHg. ?3. Mild mitral valve regurgitation. ?4. No prior similar studies to compare. None reported Hepatic None reported GI None reported Metabolic None reported Musc/skel None reported Neuropsych Cerebrovascular Accident (Right arm weakness, speech difficulty w/ slurring when fatigued) 08/03/21 MRI MR/MR head wo con* [id number] IMPRESSION: ? 1.? No acute diffusion-weighted abnormalities. 2.? Remote wedge-shaped remote infarct in the superior medial RIGHT cerebellum corresponds to the abnormality seen on 06/26/2021. Hemosiderin is now present within the infarct. No acute blood or enhancement was noted on the prior CT angiogram. Consider follow-up MRI brain with contrast to evaluate for underlying vascular abnormality. 3.? No ventriculomegaly. ? ? MRA 08/03/2021 MR/MR angio head wo con [id number] IMPRESSION: ? 1.? No aneurysms or occlusions within the [place]. ? 2. No significant atherosclerosis. ? Anesthetic Plan ASA status: 3 Anesthesia: Anesthesia Evaluation and General Other: We discussed risk and benefits of general anesthesia including PONV, sore throat (sometimes severe), corneal abrasion, positioning and peripheral nerve injuries, life threatening allergic reaction, post operative ICU admission requiring prolonged intubation, stroke, heart attack, , and rare incidences of recall. Patient consents to proceed with general anesthesia. Risk of > 500 ml blood loss (7ml/kg in children): No Medications/Allergies Home Medications Medication Instructions Recorded Confirmed Last Taken Type multivitamin 1 tab PO DAILY 06/26/21 08/26/21 Unknown History aspirin 81 mg tablet,delayed 81 mg PO DAILY #30 tab 06/28/21 08/26/21 Unknown Rx release lisinopril 5 mg tablet 5 mg PO DAILY #30 tab 06/28/21 08/26/21 Unknown Rx clopidogrel 75 mg tablet (Plavix) 75 mg PO DAILY #30 tab 07/20/21 08/26/21 Unknown Rx atorvastatin 80 mg tablet 80 mg PO DAILY #90 tab 07/29/21 08/26/21 Unknown Rx Allergies Allergy/AdvReac Type Severity Reaction Status Date / Time No Known Allergies Allergy Verified 07/29/21 09:56 [facility] Anesthesia Medical History Dyslipidemia Mitral regurgitation No pertinent past medical history Denies diabetes, asthma, hypertension, seizures, DVT/PE PCP: PIYUSH Peng Surgical History Status post hysterectomy Laparoscopic hysterectomy with bilateral salpingo-oophorectomy for abnormal uterine bleeding performed in 2000. Per patient pathology was benign Family History Brother Colon cancer Diagnosed at age 50 Father Heart disease Sister Hyperlipidemia Denies family history of Ovarian cancer Diabetes Breast cancer Hypertension Uterine cancer Thyroid condition Stroke Social History Smoking and tobacco status: never smoked Second hand smoke exposure: No Counseling given: No Desire information about substance/drug rehabilitation?: No Counseling given: No Data Anesthesia Cardiac Studies: Echocardiogram 06/26/21 Cardiac Event Monitor 07/29/21
[2021-08-28] MEDS: sodium chloride 0.9% 1,000 ML 30 ML IV (10:02)
[2021-08-28 10:12] VITALS: BP 155/56; PULSE 80; RESP 18; TEMP 36.6; O2SAT 100
--- NOTE | 2021-08-28 10:43 | USCV_ITS ---
Binh Minor Age: 61 Gender: F : 1960 Exam Date: 08/28/2021 10:59 Ordering Phys: Milagros Castellanos MD ([email or web address]) Technologist: Mildred Beasley Exam Location: [facility] [place] Indication: cva BP: / HR: Rhythm: Sinus Technical Quality: Good MEASUREMENTS (Male / Female) Normal Values Medications The posterior pharynx was sprayed with Cetacaine spray. Patient given IV sedation by anesthesia service, for details please refer to the anesthesia report. Complications Intubation easy. Attempts x1. No blood on probe post procedure. Patient tolerated procedure well. Proc. Components The TETE probe was passed into the posterior pharynx , mid- esophagus, distal esophagus, and gastric fundus. FINDINGS Left Ventricle Normal left ventricular size, systolic function and wall thickness, with no regional wall motion abnormalities. Left ventricular ejection fraction is estimated at 60 %. Right Ventricle Normal right ventricular size and systolic function. Right Atrium Normal right atrial size. Left Atrium Normal left atrial size. LA Appendage Normal left atrial appendage. Normal flow velocities in the left atrial appendage. No thrombus visualized in the left atrial appendage. IA Septum Aneurysmal interatrial septum. Small patent foramen ovale with right to left shunt. No evidence of atrial septal defect. Mitral Valve Structurally normal mitral valve. No mitral valve stenosis. Trace mitral valve regurgitation. Aortic Valve Structurally normal trileaflet aortic valve. No aortic valve stenosis. No aortic valve regurgitation. Tricuspid Valve Structurally normal tricuspid valve. Trace tricuspid valve regurgitation. Pulmonic Valve Structurally normal pulmonic valve. Trace pulmonary valve regurgitation. Pericardium No pericardial effusion. Aorta Normal sized aortic root. Mild plaque in aortic root. No aortic dilation, anerysm or dissection. Grade III atheroma noted in proximal descending aorta and aortic arch. CONCLUSIONS 1. Normal left ventricular size, systolic function and wall thickness, with no regional wall motion abnormalities. Left ventricular ejection fraction is estimated at 60 %. 2. Aneurysmal interatrial septum. Small patent foramen ovale with right to left shunt. 3. Grade III atheroma noted in proximal descending aorta and aortic arch. Milagros Castellanos MD (Electronically Signed) Final Date: 31 August 2021 15:31 S
--- NOTE | 2021-08-28 10:55 | W.PM.OPSFHP ---
Same Day Surgery H&P Indication for Procedure/HPI DATE OF PROCEDURE: August 28, 2021 CHIEF COMPLAINT/INDICATIONFOR SURGICAL PROCEDURE: Recent CVA; r/o cardioembolic stroke PREOP DIAGNOSIS: Recent CVA PLANNED PROCEDURE: Operation Date: 08/28/21 11:00 Proposed Procedures p TETE/I34.0,I63.441(Not Applicable) - Milagros Castellanos MD 61-year-old woman with recent hospiatlization for CVA on 2at [facility]. Medications/Allergies* Home Medications Medication Instructions Recorded Confirmed Type multivitamin 1 tab PO DAILY 06/26/21 08/28/21 History Allergies/Adverse Reactions Allergy/AdvReac Type Severity Reaction Status Date / Time No Known Allergies Allergy Verified 07/29/21 09:56 Current Medications: Generic Name Dose Route Start Last Admin Trade Name Freq PRN Reason Stop Dose Admin Sodium Chloride 1,000 mls @ 30 mls/hr 08/28/21 09:45 08/28/21 10:02 Sodium Chloride 0.9% IV 08/29/21 09:44 30 mls/hr .Q24H ADELA Administration Pertinent History/Comorbid Conditions* Medical History (Updated 08/01/21 @ 10:50 by Milagros Castellanos MD) Dyslipidemia Mitral regurgitation No pertinent past medical history Denies diabetes, asthma, hypertension, seizures, DVT/PE PCP: PIYUSH Peng Surgical History (Updated 11/10/20 @ 06:44 by Caty Ram MD) Status post hysterectomy Laparoscopic hysterectomy with bilateral salpingo-oophorectomy for abnormal uterine bleeding performed in 2000. Per patient pathology was benign Family History (Updated 11/05/20 @ 12:49 by Noy Gurrola RN) Colon cancer Brother Diagnosed at age 50 Heart disease Father Hyperlipidemia Sister Denies family history of Ovarian cancer Diabetes Breast cancer Hypertension Uterine cancer Thyroid condition Stroke Social History Smoking and tobacco status: never smoked Second hand smoke exposure: No Counseling given: No Desire information about substance/drug rehabilitation?: No Counseling given: No Pertinent Exam Findings alert, oriented x 3, clear to auscultation bilaterally and regular rate & rhythm Recommendations Surgery/Procedure today Coding Level of Care Code Acute Telecasting Technician for Lauren Padilla
[2021-08-28 11:31] VITALS: BP 97/51; PULSE 78; RESP 16; TEMP 36.1; O2SAT 99
[2021-08-28 11:42] VITALS: BP 111/60; PULSE 85; O2SAT 99
--- NOTE | 2021-08-28 13:51 | ANE.PACU2 ---
Inpatient post-anesthesia follow up: Airway intact: Yes Vital signs: Temperature 97 F Pulse Rate 85 Respiratory Rate 16 Blood Pressure 111/60 Pulse Oximetry 99 Oxygen Delivery Me thod Room Air Oxygen Flow Rate Fraction of Inspir ed Oxygen Hydration adequate: Yes Nausea and vomiting: No Pain level: 1 Mental status: Baseline
== END 2021-08-28 12:10 | disposition home or self-care (01) ==
PROVIDERS: PCP Nurse Practitioner Family; Visit Provider Internal Medicine Cardiovascular Disease
PROC: (CPT 93312; principal; 2021-08-28 11:00)
DX: I34.0 Nonrheumatic mitral (valve) insufficiency (principal); I63.441 Cerebral infarction due to embolism of right cerebellar artery; E78.5 Hyperlipidemia, unspecified; Z82.49 Family history of ischemic heart disease and other diseases of the circulatory system
CPT/HCPCS: 93312; 93320; 93325; J2704; J7030

== ENCOUNTER → 2021-10-08 15:50 | Outpatient (BNVA) | payer OTHER, SELFPAY | PROVIDERS: PCP Nurse Practitioner Family; Visit Provider Internal Medicine Cardiovascular Disease | DX: Q21.1 Atrial septal defect (principal); I34.0 Nonrheumatic mitral (valve) insufficiency; E78.5 Hyperlipidemia, unspecified | CPT/HCPCS: 80053; 80061; 83721 ==

== ENCOUNTER → 2022-06-29 08:33 | Outpatient (BNVA) | payer OTHER, SELFPAY | PROVIDERS: PCP Nurse Practitioner Family; Visit Provider Nurse Practitioner | DX: I34.0 Nonrheumatic mitral (valve) insufficiency (principal); E78.5 Hyperlipidemia, unspecified | CPT/HCPCS: 80053; 80061 ==

== ENCOUNTER 2022-08-03 10:28 | Outpatient (CLI) | payer OTHER, SELFPAY ==
--- NOTE | 2022-08-03 11:00 | USCV_ITS ---
Mily Binh Age: 62 Gender: F : 1960 Exam Date: 08/03/2022 11:04 Ordering Phys: Milagros Castellanos MD ([email or web address]) Technologist: [place] [facility] [place]: atrial septal defect repair BP: 125 / 75 HR: 75 Rhythm: Sinus Technical Quality: Adequate MEASUREMENTS (Male / Female) Normal Values 2D ECHO LV Diastolic Diameter PLAX 3.9 cm 4.2 - 5.9 / 3.9 - 5.3 cm LV Systolic Diameter PLAX 2.1 cm IVS Diastolic Thickness 0.8 cm 0.6 - 1.0 / 0.6 - 0.9 cm IVS Systolic Thickness 1.2 cm LVPW Diastolic Thickness 0.8 cm 0.6 - 1.0 / 0.6 - 0.9 cm LVPW Systolic Thickness 1.1 cm LVOT Diameter 2.1 cm LV Ejection Fraction 2D Teich 77.1 % LV Ejection Fraction MOD 2C 77.3 % LV Ejection Fraction 2C AL 77.3 % LA Diameter 2.7 cm M-MODE Aortic Annulus Diameter 3.0 cm LA Ao Ratio MM 0.9 MV E Point Septal Separation 1.2 cm DOPPLER AV Peak Velocity 125.0 cm/s LVOT Peak Velocity 84.0 cm/s AV Area Cont Eq vti 2.6 cm squared AV Area Cont Eq pk 2.3 cm squared MV Area PHT 5.0 cm squared Mitral E to A Ratio 1.0 MV E' Velocity 53.0 cm/s Mitral E to MV E' Ratio 8.4 Mitral E to LV E' Lateral Ratio 7.5 Mitral E to LV E' Septal Ratio 9.4 TR Peak Velocity 105.0 cm/s TR Peak Gradient 4.4 mmHg TV Peak E Velocity 103.0 cm/s Right Atrial Pressure 3.0 mmHg Pulmonary Artery Systolic Pressu 7.4 mmHg RV Acceleration Time 0.2 s FINDINGS Left Ventricle Normal left ventricular size, systolic function and wall thickness, with no regional wall motion abnormalities. Left ventricular ejection fraction is estimated at 55-60 %. Normal diastolic function. Right Ventricle Normal right ventricular size and systolic function. RVSP could not be calculated due to incomplete tricuspid regurgitation velocity profile. Right Atrium Normal right atrial size. Thickening of interatrial septum. No evidence of ASD/PFO based on this study. Left Atrium Mildly increased left atrial size. Mitral Valve Structurally normal mitral valve. No mitral valve stenosis. Trace mitral valve regurgitation. Aortic Valve Structurally normal trileaflet aortic valve. No aortic valve stenosis. No aortic valve regurgitation. Tricuspid Valve Structurally normal tricuspid valve. No tricuspid valve stenosis. Trace to mild tricuspid valve regurgitation. Pulmonic Valve Pulmonic valve not well visualized. Pericardium No pericardial effusion. Aorta Normal size aortic root and proximal ascending aorta. IVC Normal IVC dimension with >50% respiratory change of the inferior vena cava. CONCLUSIONS 1. Normal left ventricular size, systolic function and wall thickness, with no regional wall motion abnormalities. Left ventricular ejection fraction is estimated at 55-60 %. Normal diastolic function. 2. Thickening of interatrial septum. No evidence of ASD/PFO based on this study. 3. When compared to study dated 08/28/2021, there is no PFO on this study. Milagros Castellanos MD (Electronically Signed) Final Date: 12 August 2022 10:26 S
== END 2022-08-03 10:29 | disposition home or self-care (01) ==
LOC: RAD 10:32
PROVIDERS: PCP Nurse Practitioner Family; Visit Provider Internal Medicine Cardiovascular Disease
DX: I34.0 Nonrheumatic mitral (valve) insufficiency (principal); Q21.10 Atrial septal defect, unspecified
CPT/HCPCS: C8929

== ENCOUNTER → 2022-12-06 10:16 | Outpatient (BNVA) | payer OTHER, SELFPAY | PROVIDERS: PCP Nurse Practitioner Family; Visit Provider Nurse Practitioner | DX: M17.12 Unilateral primary osteoarthritis, left knee (principal); M25.562 Pain in left knee | CPT/HCPCS: 73562 ==

== ENCOUNTER → 2023-01-10 08:59 | Outpatient (BNVA) | payer OTHER, SELFPAY | PROVIDERS: PCP Nurse Practitioner Family; Visit Provider Nurse Practitioner | DX: E78.5 Hyperlipidemia, unspecified (principal) | CPT/HCPCS: 80061 ==

== ENCOUNTER → 2023-08-11 09:29 | Outpatient (BNVA) | payer OTHER, SELFPAY | PROVIDERS: PCP Nurse Practitioner Family; Visit Provider Nurse Practitioner Family | DX: R30.0 Dysuria (principal) | CPT/HCPCS: 81000 ==

== ENCOUNTER → 2024-09-26 09:42 | Outpatient (BNVA) | payer MEDICARE, SELFPAY | PROVIDERS: PCP Nurse Practitioner Family; Visit Provider Nurse Practitioner Family | DX: E78.5 Hyperlipidemia, unspecified (principal) | CPT/HCPCS: 80053; 80061 ==